=== PATIENT | male | born 1990 | race Hispanic/Latino ===

== ENCOUNTER 2021-08-11 10:07 | Emergency (ER) | payer OTHER ==
[~2021-08-11] VITALS: Ht 167.6 cm; Wt 86.2 kg
[2021-08-11 11:22] LABS: BASOPHILS % (AUTO) 0.4 % (0.0-5.0); EOSINOPHILS % (AUTO) 8.8 % (0.0-8.0); HEMATOCRIT 44.5 % (42-54); LYMPHOCYTES % (AUTO) 15.3 % (21.0-51.0); MEAN CORPUSCULAR HEMOGLOBIN 28.8 pg (27.0-33.0); MEAN CORPUSCULAR HGB CONC 33.7 g/dL (32.0-36.0); MEAN CORPUSCULAR VOLUME 85.6 fL (79-99); MONOCYTES % (AUTO) 7.8 % (3.0-13.0); NEUTROPHILS % (AUTO) 67.4 % (40.0-77.0); PLATELET COUNT (AUTO) 285 K/uL (130-400); WHITE BLOOD COUNT (AUTO) 14.3 K/uL (4.8-10.8)
[2021-08-11 11:23] LABS: APPEARANCE,URINE Clear (CLEAR); BILIRUBIN,URINE Negative (NEGATIVE); COLOR,URINE Yellow (YELLOW); GLUCOSE, URINE (UA) Negative (NEGATIVE); KETONES,URINE Trace mg/dL (NEGATIVE); LEUKOCYTE ESTERASE ,URINE Negative (NEGATIVE); NITRATE,URINE Negative (NEGATIVE); OCCULT BLOOD,URINE Negative (NEGATIVE); PROTEIN,URINE Negative (NEGATIVE)
[2021-08-11 11:36] LABS: POTASSIUM 4.5 mmol/L (3.5-5.1)
[2021-08-11 11:41] LABS: ALBUMIN 4.2 g/dL (3.5-5.0); BILIRUBIN,TOTAL 0.4 mg/dL (0.2-1.0); TOTAL PROTEIN, SERUM 8.1 g/dL (6.0-8.3)
[2021-08-11 11:48] LABS: AMPHET/METH SCREEN,URINE NEGATIVE (NEGATIVE); BARBITURATE SCREEN, URINE NEGATIVE (NEGATIVE); BENZODIAZEPINES SCREEN,URINE NEGATIVE (NEGATIVE); CANNABINOID SCREEN,URINE NEGATIVE (NEGATIVE); COCAINE SCREEN,URINE POSITIVE (NEGATIVE); OPIATE SCREEN,URINE NEGATIVE (NEGATIVE); PHENCYCLIDINE SCREEN,URINE NEGATIVE (NEGATIVE)
[2021-08-11 12:01] LABS: ALCOHOL, BLOOD < 3 mg/dL (0-10)
[2021-08-11 12:01] LABS: BACTERIA,URINE Rare /HPF (None Seen); MUCUS,URINE Rare LPF (None Seen); RBC,URINE 0-1 /HPF (0-1); SQUAMOUS EPITHELIAL CELL,UR Rare /HPF (0-2); WBC,URINE 0-1 /HPF (0-1)
[2021-08-11] MEDS ORDERED: 0.9%NACL 1000ML 2,000 ML IV ONE (13:39)
[2021-08-11 15:56] VITALS: BP 149/67
== END 2021-08-11 16:02 | disposition home or self-care (01) ==
LOC: EDH 10:07
DX: R56.9 Unspecified convulsions (principal); F14.10 Cocaine abuse, uncomplicated; R51.9 Headache, unspecified
CPT/HCPCS: 36415; 70450; 80053; 80305; 81001; 83735; 85025; 99285; J7030

== ENCOUNTER 2022-02-18 05:52 | Emergency (ER) | payer OTHER ==
[~2022-02-18] VITALS: Ht 152.4 cm; Wt 88.5 kg
[2022-02-18 06:28] LABS: BASOPHILS % (AUTO) 0.3 % (0.0-5.0); EOSINOPHILS % (AUTO) 0.5 % (0.0-8.0); HEMATOCRIT 43.6 % (42-54); LYMPHOCYTES % (AUTO) 26.6 % (21.0-51.0); MEAN CORPUSCULAR HEMOGLOBIN 29.3 pg (27.0-33.0); MEAN CORPUSCULAR HGB CONC 34.9 g/dL (32.0-36.0); MEAN CORPUSCULAR VOLUME 84.2 fL (79-99); MONOCYTES % (AUTO) 8.6 % (3.0-13.0); NEUTROPHILS % (AUTO) 63.7 % (40.0-77.0); PLATELET COUNT (AUTO) 259 K/uL (130-400); RED BLOOD CELL COUNT(AUTO) 5.18 MIL/uL (4.50-6.20); RED CELL DISTRIBUTION WIDTH 13.1 % (11.0-15.5); WHITE BLOOD COUNT (AUTO) 10.1 K/uL (4.8-10.8)
[2022-02-18 06:44] LABS: CREATININE 1.1 mg/dL (0.5-1.5); POTASSIUM 3.4 mmol/L (3.5-5.1)
[2022-02-18 06:51] LABS: ALBUMIN 4.1 g/dL (3.5-5.0); BILIRUBIN,TOTAL 0.3 mg/dL (0.2-1.0); TOTAL PROTEIN, SERUM 7.4 g/dL (6.0-8.3)
[2022-02-18 07:01] LABS: AMPHET/METH SCREEN,URINE NEGATIVE (NEGATIVE); BARBITURATE SCREEN, URINE NEGATIVE (NEGATIVE); BENZODIAZEPINES SCREEN,URINE NEGATIVE (NEGATIVE); CANNABINOID SCREEN,URINE NEGATIVE (NEGATIVE); COCAINE SCREEN,URINE POSITIVE (NEGATIVE); OPIATE SCREEN,URINE NEGATIVE (NEGATIVE); PHENCYCLIDINE SCREEN,URINE NEGATIVE (NEGATIVE)
[2022-02-18 07:14] LABS: APPEARANCE,URINE Clear (CLEAR); BILIRUBIN,URINE Negative (NEGATIVE); COLOR,URINE Yellow (YELLOW); GLUCOSE, URINE (UA) Negative (NEGATIVE); KETONES,URINE 15 mg/dL (NEGATIVE); LEUKOCYTE ESTERASE ,URINE Negative (NEGATIVE); NITRATE,URINE Negative (NEGATIVE); OCCULT BLOOD,URINE Negative (NEGATIVE); PROTEIN,URINE Trace mg/dL (NEGATIVE)
[2022-02-18 07:21] LABS: BACTERIA,URINE Rare /HPF (None Seen); RBC,URINE 0-1 /HPF (0-1); WBC,URINE 0-1 /HPF (0-1)
[2022-02-18 07:22] LABS: SQUAMOUS EPITHELIAL CELL,UR Rare /HPF (0-2)
[2022-02-18] MEDS ORDERED: ACETAMINOPHEN 500 MG TABLET PO SCH (11:30)
[2022-02-18 12:51] VITALS: BP 141/68
== END 2022-02-18 12:45 | disposition home or self-care (01) ==
LOC: EDH 05:52
DX: R56.9 Unspecified convulsions (principal); F14.10 Cocaine abuse, uncomplicated
CPT/HCPCS: 36415; 70450; 80053; 80305; 81001; 84484; 85025; 93005

== ENCOUNTER 2022-03-18 08:33 | Emergency (ER) | payer OTHER ==
[~2022-03-18] VITALS: Ht 165.1 cm; Wt 81.6 kg
[2022-03-18] MEDS ORDERED: FLUORESCEIN SODIUM 1 STRIP STRIP ONE (08:55)
[2022-03-18] MEDS ORDERED: TETRACAINE HCL 0.5% 4 ML OPHTH SOLN ONE (08:55)
[2022-03-18] MEDS ORDERED: TETANUS/DIPHTHERIA TOXOID [ADULT] 0.5 ML VIAL IM ONE (09:00)
[2022-03-18] MEDS ORDERED: NEO/5DRO4 OP (09:11)
[2022-03-18 09:22] VITALS: BP 138/97
== END 2022-03-18 09:38 | disposition home or self-care (01) ==
LOC: EDH 08:33
DX: H10.9 Unspecified conjunctivitis (principal)
CPT/HCPCS: 90471; 90714; 96372

== ENCOUNTER 2022-03-25 10:17 | Emergency (ER) | payer OTHER ==
[~2022-03-25] VITALS: Ht 165.1 cm; Wt 81.6 kg
[~2022-03-25 10:17] MED LIST: NEO/5DRO4 OP
[2022-03-25] MEDS ORDERED: TETRACAINE HCL 0.5% 4 ML OPHTH SOLN ONE (11:26)
[2022-03-25] MEDS ORDERED: FLUORESCEIN SODIUM 1 STRIP STRIP ONE (11:27)
[2022-03-25] MEDS ORDERED: NA BORATE/BORIC AC/H2O/NACL 120 ML OPHTH IRRIG SOLN ONE (11:28)
[2022-03-25] MEDS ORDERED: ERYT1OIN7 OP (12:38)
[2022-03-25] MEDS ORDERED: IBUP-2070 PO (12:38)
[2022-03-25] MEDS ORDERED: LEVO500T90 PO (12:38)
[2022-03-25 12:39] VITALS: BP 134/82
== END 2022-03-25 13:06 | disposition home or self-care (01) ==
LOC: EDH 10:17
DX: H10.9 Unspecified conjunctivitis (principal); Z79.1 Long term (current) use of non-steroidal anti-inflammatories (NSAID)

== ENCOUNTER 2023-07-10 15:37 | Emergency (ER) | payer OTHER ==
[~2023-07-10] VITALS: Ht 165.1 cm; Wt 113.4 kg
[~2023-07-10 15:37] MED LIST changes: +ERYT1OIN7 OP; +IBUP-2070 PO; +LEVO-70 PO
[2023-07-10] MEDS ORDERED: LIDOCAINE HCL 1% 20 ML VIAL INJ STA (15:43)
[2023-07-10 15:49] VITALS: BP 136/82; PULSE 74; RESP 16; O2SAT 98
[2023-07-10] MEDS ORDERED: DIPH,PERTUSS(ACELL),TET VAC/PF 0.5 ML VIAL IM ONE (16:00)
[2023-07-10] MEDS ORDERED: CEPH500B PO (16:32)
== END 2023-07-10 16:37 | disposition home or self-care (01) ==
LOC: EDH 15:37
DX: S61.412A Laceration without foreign body of left hand, initial encounter (principal); Z79.899 Other long term (current) drug therapy; W26.0XXA Contact with knife, initial encounter; Y93.89 Activity, other specified; Y92.89 Other specified places as the place of occurrence of the external cause; Y99.8 Other external cause status
CPT/HCPCS: 12001; 90471; 90715

== ENCOUNTER 2025-01-26 14:18 | Emergency (ER) | payer SELFPAY ==
[~2025-01-26] VITALS: Ht 162.6 cm; Wt 113.4 kg
[~2025-01-26 14:18] MED LIST changes: +CEPH500B PO
[2025-01-26 14:49] LABS: BASOPHILS # (AUTO) 0.04 K/uL (0.00-0.20); BASOPHILS % (AUTO) 0.3 % (0.0-5.0); EOSINOPHILS # (AUTO) 0.15 K/uL (0.00-0.70); EOSINOPHILS % (AUTO) 1.2 % (0.0-8.0); IMMATURE GRANULOCYTE ABSOLUTE 0.04 K/uL (0-1); LYMPHOCYTES # (AUTO) 2.2 K/uL (1.0-4.8); LYMPHOCYTES % (AUTO) 17.9 % (21.0-51.0); MEAN CORPUSCULAR HEMOGLOBIN 28.4 pg (27.0-33.0); MEAN CORPUSCULAR VOLUME 83.3 fL (79-99); MONOCYTES # (AUTO) 1.3 K/uL (0.1-1.0); MONOCYTES % (AUTO) 11.1 % (3.0-13.0); NEUTROPHILS # (AUTO) 8.3 K/uL (1.8-7.7); NEUTROPHILS % (AUTO) 69.2 % (40.0-77.0); PLATELET COUNT (AUTO) 315 K/uL (130-400); RED BLOOD CELL COUNT(AUTO) 5.64 MIL/uL (4.50-6.20); RED CELL DISTRIBUTION WIDTH 14.1 % (11.0-15.5); WHITE BLOOD COUNT (AUTO) 12.1 K/uL (4.8-10.8)
[2025-01-26 14:58] LABS: CREATININE 0.8 mg/dL (0.5-1.3); POTASSIUM 3.9 mmol/L (3.5-5.1)
[2025-01-26] MEDS: ketOROlac 15MG/ML VIAL (15MG/ML) IM ONE (15:19)
[2025-01-26] MEDS: LIDOCAINE HCL 1% 20 ML VIAL INJ STA (15:26)
[2025-01-26] MEDS ORDERED: CLIN-141 PO (15:44)
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
[2025-01-26 16:17] VITALS: BP 131/79; PULSE 82; RESP 16; TEMP 98.3; O2SAT 98
== END 2025-01-26 16:20 | disposition home or self-care (01) ==
LOC: EDH 14:18
DX: L03.115 Cellulitis of right lower limb (principal); I10 Essential (primary) hypertension; Z91.148 Patient's other noncompliance with medication regimen for other reason; Z79.899 Other long term (current) drug therapy
CPT/HCPCS: 99283; 80048; 85025; 36415; 96372; J1885